=== PATIENT | male | born 1985 | race Asian ===

== ENCOUNTER 2025-09-11 12:46 | Emergency (ER) | payer SELFPAY ==
[~2025-09-11] VITALS: Ht 175.3 cm; Wt 80.0 kg
[2025-09-11 12:55] VITALS: O2SAT 99
[2025-09-11] MEDS: ACETAMINOPHEN 325MG TABLET PO ONE (14:49)
[2025-09-11] MEDS ORDERED: ACET-2708 MT (15:18)
[2025-09-11] MEDS ORDERED: IBUP-2028 MT (15:18)
[2025-09-11] MEDS: KETOROLAC 30MG/ML VIAL IM ONE (15:46)
[2025-09-11 15:56] VITALS: BP 123/79; PULSE 74; RESP 18; TEMP 37.1; O2SAT 95
== END 2025-09-11 16:49 | disposition home or self-care (01) ==
LOC: ER 12:46
DX: S02.2XXA Fracture of nasal bones, initial encounter for closed fracture (principal); W22.8XXA Striking against or struck by other objects, initial encounter; Y93.89 Activity, other specified; Y92.89 Other specified places as the place of occurrence of the external cause; Y99.8 Other external cause status
CPT/HCPCS: 99285; 70450; 70486; 72125; 96372; J1885